=== PATIENT | male | born 1955 | race Caucasian/White ===

== ENCOUNTER 2017-09-13 10:31 | Emergency (ER) | payer MEDICARE, OTHER ==
[~2017-09-13] VITALS: Ht 193 cm; Wt 166.3 kg
[~2017-09-13 10:31] MED LIST: ASPI-621 PO; ASPI325T17 PO; FAMO-79 PO; GABA300C PO; NITR0.4T SL; PANT40TA3 PO; SIMV20TA PO; SIMV40TA PO
[2017-09-13 10:42] VITALS: BP 147/84
[2017-09-13] MEDS ORDERED: ONDANSETRON 2MG/ML, 2ML IVPush ONE (11:30)
[2017-09-13] MEDS ORDERED: SODIUM CHLORIDE FLUSH 10ML SYR IVF ONE (11:30)
[2017-09-13] MEDS ORDERED: MORPHINE SULFATE 4 MG/ML, 1ML IVPush PRN (11:30)
[2017-09-13] MEDS ORDERED: SODIUM CHLORIDE 0.9% 1,000ML IVBOLUS ONE (11:30)
[2017-09-13 11:59] LABS: BASOPHILS # (AUTO) 0.06 x10^3/uL (0-0.1); BASOPHILS % (AUTO) 1 % (0-1); EOSINOPHILS # (AUTO) 0.06 x10^3/uL (0-0.4); EOSINOPHILS % (AUTO) 1 % (1-7); LYMPHOCYTES # (AUTO) 2.01 x10^3/uL (1-3.4); LYMPHOCYTES % (AUTO) 21 % (22-44); MD NO; MEAN CORPUSCULAR HEMOGLOBIN 31.6 pg (27.5-34.5); MEAN CORPUSCULAR VOLUME 93.1 fL (81-97); MEAN PLATELET VOLUME 8.7 fL (7.4-10.4); MONOCYTES # (AUTO) 0.57 x10^3/uL (0.2-0.8); MONOCYTES % (AUTO) 6 % (2-9); NEUTROPHILS # (AUTO) 6.96 x10^3/uL (1.8-6.8); NEUTROPHILS % (AUTO) 72 % (42-75); PLATELET COUNT 311 x10^3/uL (130-400); RED BLOOD COUNT 5.62 x10^6/uL (4.38-5.82); RED CELL DISTRIBUTION WIDTH 14.8 % (9.4-14.8)
[2017-09-13 12:11] LABS: ALBUMIN 3.6 g/dL (3.4-5.0); ANION GAP 8 mmol/L (5-15); CALCIUM 8.6 mg/dL (8.5-10.1); CHLORIDE 105 mmol/L (98-107)
[2017-09-13 12:15] LABS: ALANINE AMINOTRANSFERASE 18 U/L (12-78); ALKALINE PHOSPHATASE 102 U/L (45-117); BILIRUBIN,TOTAL 0.6 mg/dL (0.2-1.0); CREATININE 0.81 mg/dL (0.7-1.3); TOTAL PROTEIN 7.2 g/dL (6.4-8.2)
== END 2017-09-13 14:47 | disposition left against medical advice (07) ==
LOC: ED 14:41
DX: R10.9 Unspecified abdominal pain (principal); R11.0 Nausea
CPT/HCPCS: 36415; 80053; 83690; 85025; 99284

== ENCOUNTER 2017-09-15 12:07 | Inpatient (IN) | payer MEDICARE, OTHER ==
[~2017-09-15] VITALS: Ht 193 cm; Wt 112.9 kg
[2017-09-15 13:23] LABS: MEAN CORPUSCULAR HEMOGLOBIN 31.1 pg (27.5-34.5); MEAN CORPUSCULAR HGB CONC 33.6 g/dL (33.2-36.2); MEAN CORPUSCULAR VOLUME 92.5 fL (81-97); MEAN PLATELET VOLUME 8.5 fL (7.4-10.4); PLATELET COUNT 321 x10^3/uL (130-400); RED BLOOD COUNT 5.66 x10^6/uL (4.38-5.82)
[2017-09-15 13:33] LABS: CHLORIDE 103 mmol/L (98-107)
[2017-09-15 13:34] LABS: ALBUMIN 3.7 g/dL (3.4-5.0); ANION GAP 9 mmol/L (5-15)
[2017-09-15 13:42] LABS: BASOPHILS # (AUTO) 0.04 x10^3/uL (0-0.1); BASOPHILS % (AUTO) 0 % (0-1); EOSINOPHILS # (AUTO) 0.03 x10^3/uL (0-0.4); EOSINOPHILS % (AUTO) 0 % (1-7); LYMPHOCYTES # (AUTO) 1.94 x10^3/uL (1-3.4); LYMPHOCYTES % (AUTO) 15 % (22-44); MD SCAN; MONOCYTES % (AUTO) 6 % (2-9); NEUTROPHILS # (AUTO) 10.04 x10^3/uL (1.8-6.8); NEUTROPHILS % (AUTO) 79 % (42-75)
[2017-09-15 13:53] LABS: ALANINE AMINOTRANSFERASE 15 U/L (12-78); ALKALINE PHOSPHATASE 105 U/L (45-117); BILIRUBIN,TOTAL 0.8 mg/dL (0.2-1.0); TOTAL PROTEIN 7.2 g/dL (6.4-8.2)
[2017-09-15] MEDS ORDERED: SODIUM CHLORIDE 0.9% 1,000 ML IV ONE (14:12)
[2017-09-15] MEDS ORDERED: ONDANSETRON 2MG/ML, 2ML ONE (14:14)
[2017-09-15] MEDS ORDERED: MORPHINE SULFATE 4 MG/ML, 1ML ONE ×2 (14:14→14:57)
[2017-09-15] MEDS: MORPHINE SULFATE 4 MG/ML, 1ML IVPush PRN ×4 (14:24→21:39)
[2017-09-15] MEDS ORDERED: ONDANSETRON 2MG/ML, 2ML IVPush ONE (14:30)
[2017-09-15] MEDS ORDERED: FAMOTIDINE 20 MG/2 ML IVPush ONE (14:30)
[2017-09-15] MEDS ORDERED: SODIUM CHLORIDE FLUSH 10ML SYR IVF ONE (14:30)
[2017-09-15] MEDS ORDERED: PANTOPRAZOLE 40 MG IV ONE (14:59)
[2017-09-15] MEDS ORDERED: PANTOPRAZOLE 40 MG IV IVPush ONE (15:00)
[2017-09-15] MEDS ORDERED: PANTOPRAZOLE 80 MG in SODIUM CHLORIDE 0.9% 50 ML IV ONE (15:00)
[2017-09-15] MEDS: PIPERACILLIN/TAZO/PMX 4.5GM 100 ML IV SCH ×2 (15:17→22:51)
[2017-09-15] MEDS ORDERED: morphine SULFATE 10 MG/ML, 1ML IVPush PRN (15:30)
[2017-09-15] MEDS ORDERED: ONDANSETRON 2MG/ML, 2ML IVPush PRN (15:30)
[2017-09-15] MEDS ORDERED: LABETALOL 5MG/ML, 20ML IVPush PRN (15:30)
[2017-09-15] MEDS ORDERED: ONDANSETRON ODT 4 MG PO PRN (15:30)
[2017-09-15] MEDS ORDERED: PROMETHAZINE 25 MG/ML, 1ML IM PRN (15:30)
[2017-09-15] MEDS ORDERED: hydrALAzine 20 MG/ML, 1ML IVPush PRN (15:30)
[2017-09-15] MEDS ORDERED: METOCLOPRAMIDE 5 MG/ML, 2ML IVPush PRN (15:30)
[2017-09-15] MEDS: PANTOPRAZOLE 40 MG IV IVPush SCH (16:00)
[2017-09-15 16:33] LABS: BASOPHILS # (AUTO) 0.03 x10^3/uL (0-0.1); BASOPHILS % (AUTO) 0 % (0-1); EOSINOPHILS # (AUTO) 0.02 x10^3/uL (0-0.4); EOSINOPHILS % (AUTO) 0 % (1-7); LYMPHOCYTES % (AUTO) 14 % (22-44); MD NO; MEAN CORPUSCULAR HEMOGLOBIN 31.2 pg (27.5-34.5); MEAN CORPUSCULAR HGB CONC 33.4 g/dL (33.2-36.2); MEAN CORPUSCULAR VOLUME 93.5 fL (81-97); MEAN PLATELET VOLUME 8.6 fL (7.4-10.4); MONOCYTES # (AUTO) 0.55 x10^3/uL (0.2-0.8); MONOCYTES % (AUTO) 5 % (2-9); NEUTROPHILS # (AUTO) 8.25 x10^3/uL (1.8-6.8); NEUTROPHILS % (AUTO) 81 % (42-75); PLATELET COUNT 282 x10^3/uL (130-400); RED BLOOD COUNT 5.33 x10^6/uL (4.38-5.82); RED CELL DISTRIBUTION WIDTH 15.3 % (9.4-14.8)
[2017-09-15] MEDS: PANTOPRAZOLE 80 MG in SODIUM CHLORIDE 0.9% 100 ML IV SCH (16:37)
[2017-09-15] MEDS: SODIUM CHLORIDE 0.9% 1,000 ML IV SCH (16:37)
[2017-09-15] MEDS: NICOTINE 14MG/24 HR PATCH.TD24 TD SCH (16:53)
[2017-09-15] MEDS ORDERED: morphine SULFATE 10 MG/ML, 1ML ONE (18:10)
[2017-09-15 18:36] LABS: MICROSCOPIC NOT IND
[2017-09-15 18:42] LABS: CULTURE INDICATED? NO
[2017-09-15 19:22] VITALS: BP 124/79
[2017-09-16] MEDS: PANTOPRAZOLE 80 MG in SODIUM CHLORIDE 0.9% 100 ML IV SCH (01:00)
[2017-09-16] MEDS: SODIUM CHLORIDE 0.9% 1,000 ML IV SCH ×2 (01:21→14:34)
[2017-09-16] MEDS: MORPHINE SULFATE 4 MG/ML, 1ML IVPush PRN ×7 (01:24→23:20)
[2017-09-16] MEDS: PANTOPRAZOLE 40 MG IV IVPush SCH ×2 (05:25→17:09)
[2017-09-16 05:49] LABS: ALBUMIN 2.8 g/dL (3.4-5.0); ANION GAP 6 mmol/L (5-15); CHLORIDE 108 mmol/L (98-107)
[2017-09-16 05:55] LABS: ALANINE AMINOTRANSFERASE 14 U/L (12-78); ALKALINE PHOSPHATASE 83 U/L (45-117); BILIRUBIN,TOTAL 0.8 mg/dL (0.2-1.0); CALCIUM 8.1 mg/dL (8.5-10.1); CHOL/HDL RATIO 4.8; CHOLESTEROL, TOTAL 153 mg/dL (140-239); CREATININE 0.79 mg/dL (0.7-1.3); HDL CHOL % 21 % (26-37); HDL CHOLESTEROL (DIRECT) 32 mg/dL (40-60); LDL CHOLESTEROL,CALCULATED 91 mg/dL (54-169); LDL/HDL RATIO 2.8 (0.5-3.0); TOTAL PROTEIN 5.8 g/dL (6.4-8.2); TRIGLYCERIDES 148 mg/dL (50-200); VLDL CHOLESTEROL 30 mg/dL (0-25)
[2017-09-16 06:01] LABS: BASOPHILS # (AUTO) 0.04 x10^3/uL (0-0.1); BASOPHILS % (AUTO) 0 % (0-1); EOSINOPHILS # (AUTO) 0.13 x10^3/uL (0-0.4); EOSINOPHILS % (AUTO) 2 % (1-7); LYMPHOCYTES # (AUTO) 1.99 x10^3/uL (1-3.4); LYMPHOCYTES % (AUTO) 24 % (22-44); MD NO; MEAN CORPUSCULAR HEMOGLOBIN 31.5 pg (27.5-34.5); MEAN CORPUSCULAR HGB CONC 33.7 g/dL (33.2-36.2); MEAN CORPUSCULAR VOLUME 93.4 fL (81-97); MEAN PLATELET VOLUME 8.7 fL (7.4-10.4); MONOCYTES % (AUTO) 9 % (2-9); NEUTROPHILS # (AUTO) 5.34 x10^3/uL (1.8-6.8); NEUTROPHILS % (AUTO) 65 % (42-75); PLATELET COUNT 271 x10^3/uL (130-400); RED BLOOD COUNT 4.95 x10^6/uL (4.38-5.82); RED CELL DISTRIBUTION WIDTH 14.7 % (9.4-14.8)
[2017-09-16 06:25] VITALS: BP 105/73
[2017-09-16] MEDS: PIPERACILLIN/TAZO/PMX 4.5GM 100 ML IV SCH ×3 (06:35→23:20)
[2017-09-16] MEDS ORDERED: LORazepam 2 MG/ML, 1ML IVPush PRN (09:00)
[2017-09-16 12:40] VITALS: BP 90/53
[2017-09-16] MEDS ORDERED: BENZOCAINE 20% SPRAY 0.5ML TP PRN (15:00)
[2017-09-16] MEDS: NICOTINE 14MG/24 HR PATCH.TD24 TD SCH (15:13)
[2017-09-16] MEDS: PHENOL THROAT SPRAY BOTTLE MM PRN ×2 (17:17→19:11)
[2017-09-16 20:56] VITALS: BP 97/53
[2017-09-17] MEDS: SODIUM CHLORIDE 0.9% 1,000 ML IV SCH (02:10)
[2017-09-17 03:38] VITALS: BP 104/73
[2017-09-17] MEDS: PANTOPRAZOLE 40 MG IV IVPush SCH ×2 (05:05→18:27)
[2017-09-17] MEDS: MORPHINE SULFATE 4 MG/ML, 1ML IVPush PRN ×5 (05:05→23:04)
[2017-09-17 05:14] LABS: BASOPHILS # (AUTO) 0.07 x10^3/uL (0-0.1); BASOPHILS % (AUTO) 1 % (0-1); EOSINOPHILS # (AUTO) 0.18 x10^3/uL (0-0.4); EOSINOPHILS % (AUTO) 2 % (1-7); LYMPHOCYTES # (AUTO) 1.99 x10^3/uL (1-3.4); LYMPHOCYTES % (AUTO) 26 % (22-44); MD NO; MEAN CORPUSCULAR HEMOGLOBIN 31.2 pg (27.5-34.5); MEAN CORPUSCULAR HGB CONC 33.4 g/dL (33.2-36.2); MEAN CORPUSCULAR VOLUME 93.5 fL (81-97); MEAN PLATELET VOLUME 8.3 fL (7.4-10.4); MONOCYTES # (AUTO) 0.59 x10^3/uL (0.2-0.8); MONOCYTES % (AUTO) 8 % (2-9); NEUTROPHILS # (AUTO) 4.75 x10^3/uL (1.8-6.8); NEUTROPHILS % (AUTO) 63 % (42-75); PLATELET COUNT 261 x10^3/uL (130-400); RED BLOOD COUNT 4.83 x10^6/uL (4.38-5.82); RED CELL DISTRIBUTION WIDTH 15.2 % (9.4-14.8)
[2017-09-17 05:27] LABS: CHLORIDE 108 mmol/L (98-107)
[2017-09-17 05:32] LABS: ALANINE AMINOTRANSFERASE 12 U/L (12-78); ALBUMIN 2.8 g/dL (3.4-5.0); ALKALINE PHOSPHATASE 75 U/L (45-117); ANION GAP 8 mmol/L (5-15); BILIRUBIN,TOTAL 0.9 mg/dL (0.2-1.0); CALCIUM 8.1 mg/dL (8.5-10.1); CREATININE 0.97 mg/dL (0.7-1.3); TOTAL PROTEIN 6.1 g/dL (6.4-8.2)
[2017-09-17] MEDS: PIPERACILLIN/TAZO/PMX 4.5GM 100 ML IV SCH ×3 (06:50→23:04)
[2017-09-17 08:18] VITALS: BP 108/73
[2017-09-17] MEDS: DEXTROSE 5% 1,000 ML IV SCH ×2 (10:30→23:06)
[2017-09-17 12:25] VITALS: BP 114/74
[2017-09-17] MEDS: NICOTINE 14MG/24 HR PATCH.TD24 TD SCH (15:10)
[2017-09-17 19:53] VITALS: BP 122/79
[2017-09-18 02:49] VITALS: BP 120/84
[2017-09-18] MEDS: MORPHINE SULFATE 4 MG/ML, 1ML IVPush PRN ×5 (03:22→21:16)
[2017-09-18 05:20] LABS: BASOPHILS # (AUTO) 0.03 x10^3/uL (0-0.1); BASOPHILS % (AUTO) 1 % (0-1); EOSINOPHILS # (AUTO) 0.14 x10^3/uL (0-0.4); EOSINOPHILS % (AUTO) 3 % (1-7); LYMPHOCYTES # (AUTO) 1.55 x10^3/uL (1-3.4); LYMPHOCYTES % (AUTO) 27 % (22-44); MD NO; MEAN CORPUSCULAR HEMOGLOBIN 31.2 pg (27.5-34.5); MEAN CORPUSCULAR HGB CONC 33.3 g/dL (33.2-36.2); MEAN CORPUSCULAR VOLUME 93.8 fL (81-97); MEAN PLATELET VOLUME 8.8 fL (7.4-10.4); MONOCYTES # (AUTO) 0.57 x10^3/uL (0.2-0.8); MONOCYTES % (AUTO) 10 % (2-9); NEUTROPHILS # (AUTO) 3.39 x10^3/uL (1.8-6.8); NEUTROPHILS % (AUTO) 60 % (42-75); PLATELET COUNT 274 x10^3/uL (130-400); RED BLOOD COUNT 4.84 x10^6/uL (4.38-5.82); RED CELL DISTRIBUTION WIDTH 14.5 % (9.4-14.8)
[2017-09-18 05:25] LABS: ALBUMIN 2.9 g/dL (3.4-5.0); ANION GAP 4 mmol/L (5-15); CALCIUM 8.2 mg/dL (8.5-10.1); CHLORIDE 106 mmol/L (98-107)
[2017-09-18 05:29] LABS: ALANINE AMINOTRANSFERASE 13 U/L (12-78); ALKALINE PHOSPHATASE 77 U/L (45-117); CREATININE 0.93 mg/dL (0.7-1.3)
[2017-09-18] MEDS: PIPERACILLIN/TAZO/PMX 4.5GM 100 ML IV SCH ×3 (06:31→23:12)
[2017-09-18] MEDS: PANTOPRAZOLE 40 MG IV IVPush SCH ×2 (06:31→17:59)
[2017-09-18 07:23] VITALS: BP 118/78
[2017-09-18 12:37] VITALS: BP 126/74
[2017-09-18] MEDS: NICOTINE 14MG/24 HR PATCH.TD24 TD SCH (14:57)
[2017-09-18] MEDS: DEXTROSE 5% 1,000 ML IV SCH (14:58)
[2017-09-18] MEDS: ENOXAPARIN 40 MG/0.4 ML SQ SCH (15:30)
[2017-09-18 20:37] VITALS: BP 110/70
[2017-09-18] MEDS ORDERED: LORazepam 2 MG/ML, 1ML IVPush PRN (21:00)
[2017-09-19 01:02] VITALS: BP 114/79
[2017-09-19] MEDS: MORPHINE SULFATE 4 MG/ML, 1ML IVPush PRN ×6 (01:05→22:30)
[2017-09-19] MEDS: DEXTROSE 5% 1,000 ML IV SCH ×2 (04:56→22:31)
[2017-09-19 05:52] LABS: BASOPHILS # (AUTO) 0.05 x10^3/uL (0-0.1); BASOPHILS % (AUTO) 1 % (0-1); EOSINOPHILS # (AUTO) 0.12 x10^3/uL (0-0.4); EOSINOPHILS % (AUTO) 2 % (1-7); LYMPHOCYTES # (AUTO) 1.55 x10^3/uL (1-3.4); LYMPHOCYTES % (AUTO) 27 % (22-44); MD NO; MEAN CORPUSCULAR HEMOGLOBIN 31.6 pg (27.5-34.5); MEAN CORPUSCULAR HGB CONC 33.8 g/dL (33.2-36.2); MEAN CORPUSCULAR VOLUME 93.7 fL (81-97); MEAN PLATELET VOLUME 8.8 fL (7.4-10.4); MONOCYTES # (AUTO) 0.54 x10^3/uL (0.2-0.8); MONOCYTES % (AUTO) 10 % (2-9); NEUTROPHILS # (AUTO) 3.43 x10^3/uL (1.8-6.8); NEUTROPHILS % (AUTO) 60 % (42-75); PLATELET COUNT 269 x10^3/uL (130-400); RED BLOOD COUNT 4.89 x10^6/uL (4.38-5.82); RED CELL DISTRIBUTION WIDTH 14.9 % (9.4-14.8)
[2017-09-19 05:58] LABS: CHLORIDE 106 mmol/L (98-107)
[2017-09-19] MEDS: PIPERACILLIN/TAZO/PMX 4.5GM 100 ML IV SCH ×3 (06:07→22:30)
[2017-09-19 06:09] LABS: ALANINE AMINOTRANSFERASE 21 U/L (12-78); ALBUMIN 3.1 g/dL (3.4-5.0); ALKALINE PHOSPHATASE 77 U/L (45-117); ANION GAP 7 mmol/L (5-15); BILIRUBIN,TOTAL 0.8 mg/dL (0.2-1.0); CALCIUM 8.5 mg/dL (8.5-10.1); CREATININE 0.85 mg/dL (0.7-1.3); TOTAL PROTEIN 6.2 g/dL (6.4-8.2)
[2017-09-19] MEDS: PANTOPRAZOLE 40 MG IV IVPush SCH ×2 (06:13→18:22)
[2017-09-19 07:35] VITALS: BP 132/78
[2017-09-19 13:10] VITALS: BP 108/78
[2017-09-19] MEDS: ENOXAPARIN 40 MG/0.4 ML SQ SCH (14:25)
[2017-09-19] MEDS: NICOTINE 14MG/24 HR PATCH.TD24 TD SCH (15:21)
[2017-09-19 19:59] VITALS: BP 109/74
[2017-09-20 03:14] VITALS: BP 151/84
[2017-09-20 05:48] LABS: BASOPHILS # (AUTO) 0.03 x10^3/uL (0-0.1); BASOPHILS % (AUTO) 1 % (0-1); EOSINOPHILS # (AUTO) 0.12 x10^3/uL (0-0.4); EOSINOPHILS % (AUTO) 2 % (1-7); LYMPHOCYTES # (AUTO) 1.42 x10^3/uL (1-3.4); LYMPHOCYTES % (AUTO) 28 % (22-44); MD NO; MEAN CORPUSCULAR HEMOGLOBIN 31.6 pg (27.5-34.5); MEAN CORPUSCULAR HGB CONC 33.6 g/dL (33.2-36.2); MEAN CORPUSCULAR VOLUME 94.1 fL (81-97); MEAN PLATELET VOLUME 8.9 fL (7.4-10.4); MONOCYTES # (AUTO) 0.46 x10^3/uL (0.2-0.8); MONOCYTES % (AUTO) 9 % (2-9); NEUTROPHILS # (AUTO) 3.11 x10^3/uL (1.8-6.8); NEUTROPHILS % (AUTO) 61 % (42-75); PLATELET COUNT 267 x10^3/uL (130-400); RED BLOOD COUNT 5.04 x10^6/uL (4.38-5.82); RED CELL DISTRIBUTION WIDTH 14.4 % (9.4-14.8)
[2017-09-20 05:50] LABS: ALBUMIN 3.2 g/dL (3.4-5.0); ANION GAP 5 mmol/L (5-15); CALCIUM 8.4 mg/dL (8.5-10.1); CHLORIDE 107 mmol/L (98-107)
[2017-09-20 05:53] LABS: ALANINE AMINOTRANSFERASE 17 U/L (12-78); ALKALINE PHOSPHATASE 78 U/L (45-117); BILIRUBIN,TOTAL 0.8 mg/dL (0.2-1.0); CREATININE 0.93 mg/dL (0.7-1.3); TOTAL PROTEIN 6.2 g/dL (6.4-8.2)
[2017-09-20] MEDS: PIPERACILLIN/TAZO/PMX 4.5GM 100 ML IV SCH (06:48)
[2017-09-20] MEDS: PANTOPRAZOLE 40 MG IV IVPush SCH (06:49)
[2017-09-20 07:00] VITALS: BP 125/77
== END 2017-09-20 08:00 | disposition left against medical advice (07) | DRG 381 ==
LOC: ED 13:00 → EDIP 14:37 → 4NOR 15:55
PROVIDERS: ADMIT Internal Medicine Pulmonary Disease; ATTEND Internal Medicine Pulmonary Disease
DX: K26.5 Chronic or unspecified duodenal ulcer with perforation (principal); K86.1 Other chronic pancreatitis; D72.829 Elevated white blood cell count, unspecified; E66.9 Obesity, unspecified; E78.5 Hyperlipidemia, unspecified; F17.210 Nicotine dependence, cigarettes, uncomplicated; Z72.89 Other problems related to lifestyle; F41.9 Anxiety disorder, unspecified; I10 Essential (primary) hypertension; Z87.11 Personal history of peptic ulcer disease; Z53.21 Procedure and treatment not carried out due to patient leaving prior to being seen by health care provider; Z68.30 Body mass index [BMI] 30.0-30.9, adult; R07.0 Pain in throat
CPT/HCPCS: 36415; 74018; 74176; 74245; 80053; 80061; 81003; 83735; 84100; 85025; 87040; 96361; 96374; 96375; 96376; J2405; J2543; J7070; C9113; J2060; J7030

== ENCOUNTER 2018-07-28 10:20 | Emergency (ER) | payer OTHER ==
[~2018-07-28] VITALS: Ht 193 cm; Wt 109.0 kg
[~2018-07-28 10:20] MED LIST changes: -ASPI-621 PO; +ASPI81TA45 PO
--- NOTE | 2018-07-28 10:54 | NUR ---
PATIENT REPORT GIVEN TO BORIS. PATIENT UNDRESSED, GIVEN WARM BLANKET, SOCKS. PATIENT'S CLOTHES WERE WET BECUASE HE WALKED TO THE ER. PATIENT COOPERATIVE AND APPROPRIATE.
[2018-07-28 11:27] LABS: BASOPHILS # (AUTO) 0.03 x10^3/uL (0-0.1); BASOPHILS % (AUTO) 0 % (0-1); EOSINOPHILS # (AUTO) 0.03 x10^3/uL (0-0.4); EOSINOPHILS % (AUTO) 0 % (1-7); LYMPHOCYTES # (AUTO) 1.39 x10^3/uL (1-3.4); LYMPHOCYTES % (AUTO) 14 % (22-44); MD NO; MEAN CORPUSCULAR HGB CONC 33.9 g/dL (33.2-36.2); MEAN CORPUSCULAR VOLUME 94.2 fL (81-97); MEAN PLATELET VOLUME 8.9 fL (7.4-10.4); MONOCYTES # (AUTO) 0.59 x10^3/uL (0.2-0.8); MONOCYTES % (AUTO) 6 % (2-9); NEUTROPHILS # (AUTO) 8.22 x10^3/uL (1.8-6.8); NEUTROPHILS % (AUTO) 80 % (42-75); PLATELET COUNT 238 x10^3/uL (130-400); RED BLOOD COUNT 5.18 x10^6/uL (4.38-5.82); RED CELL DISTRIBUTION WIDTH 13.8 % (9.4-14.8)
[2018-07-28 11:37] LABS: INTERNATIONAL NORMALIZED RATIO 1.01 (0.93-1.1); PROTHROMBIN TIME 10.7 Seconds (9.6-11.5)
--- NOTE | 2018-07-28 11:38 | NUR ---
PATIEN TTO RADIOLOGY
[2018-07-28 11:42] LABS: CHLORIDE 103 mmol/L (98-107)
[2018-07-28 12:06] LABS: ALANINE AMINOTRANSFERASE 21 U/L (12-78); ALBUMIN 3.9 g/dL (3.4-5.0); ALKALINE PHOSPHATASE 99 U/L (45-117); ANION GAP 7 mmol/L (5-15); BILIRUBIN,TOTAL 0.8 mg/dL (0.2-1.0); CALCIUM 8.6 mg/dL (8.5-10.1); CREATININE 0.92 mg/dL (0.7-1.3)
[2018-07-28 12:13] LABS: TROPONIN I < 0.015 ng/mL (0.000-0.045)
[2018-07-28] MEDS ORDERED: ASPIRIN 81 MG TABLET CHEW PO ONE (12:30)
--- NOTE | 2018-07-28 12:32 | NUR ---
PT WITH CHEST PAIN. MD AWARE. VITALS STABLE.
[2018-07-28] MEDS ORDERED: ASPIRIN 81 MG TABLET CHEW ONE (12:35)
[2018-07-28] MEDS ORDERED: NITROGLYCERIN SINGLE TAB 0.4 MG SL ONE (12:59)
--- NOTE | 2018-07-28 12:59 | NUR ---
PT STATES CHEST PAIN OF 8/10. NITRO GIVEN.
[2018-07-28] MEDS ORDERED: NITROGLYCERIN SINGLE TAB 0.4 MG SL PRN (13:00)
--- NOTE | 2018-07-28 13:48 | NUR ---
PT AWAITING TRANSPORT TO [facility] WHEN BED AVAILABLE
--- NOTE | 2018-07-28 14:47 | NUR ---
PT GIVEN CRACKERS AND MILK. DIET TRAY ORDERED
--- NOTE | 2018-07-28 15:53 | NUR ---
PT RESTING IN BED.
--- NOTE | 2018-07-28 16:39 | NUR ---
REPORT CALLED TO ALEENA CAVAZOS. PT GIVEN MEAL TRAY.
[2018-07-28 16:40] VITALS: BP 123/75
--- NOTE | 2018-07-28 17:52 | NUR ---
PT LEFT VIA [facility] TO [place]
== END 2018-07-28 17:56 | disposition short-term general hospital (02) ==
LOC: ED 11:25 → UNDOADMIN 12:25 → EDIP 12:25
DX: R07.89 Other chest pain (principal); F17.200 Nicotine dependence, unspecified, uncomplicated
CPT/HCPCS: 36415; 70450; 71045; 80053; 80307; 84484; 85025; 85610; 85730; 93005; 99285

== ENCOUNTER 2018-12-02 02:35 | Emergency (ER) | payer OTHER, MEDICARE ==
[~2018-12-02] VITALS: Ht 193 cm; Wt 114.4 kg
[2018-12-02] MEDS ORDERED: ATOR20TA PO (02:50)
[2018-12-02] MEDS ORDERED: ASPI-515 PO (02:50)
[2018-12-02] MEDS ORDERED: CLOP75TA52 PO (02:50)
--- NOTE | 2018-12-02 03:08 | NUR ---
BIB [facility] AFTER FALL [facility] [employer]. PT HAVING NUMBNESS AND WEAKNESS TO LEFT ARM AND LEG. PT DIAGNOSED WITH TIA 3-4 WEEKS AGO, LEFT SIDE IS WEAKER THAN RIGHT SIDE. DENIES LOC. LACERATION ABOVE LEFT EYEBROW. ABRASION TO RIGHT FOREARM. HAVING PAIN TO RIGHT LOWER BACK AND RIGHT WRIST. PT IS BLIND IN RIGHT EYE.
[2018-12-02 03:12] LABS: BASOPHILS # (AUTO) 0.03 x10^3/uL (0-0.1); BASOPHILS % (AUTO) 0 % (0-1); EOSINOPHILS % (AUTO) 0 % (1-7); LYMPHOCYTES # (AUTO) 0.97 x10^3/uL (1-3.4); LYMPHOCYTES % (AUTO) 7 % (22-44); MD NO; MEAN CORPUSCULAR HEMOGLOBIN 32.1 pg (27.5-34.5); MEAN CORPUSCULAR HGB CONC 33.9 g/dL (33.2-36.2); MEAN CORPUSCULAR VOLUME 94.8 fL (81-97); MEAN PLATELET VOLUME 8.1 fL (7.4-10.4); MONOCYTES % (AUTO) 4 % (2-9); NEUTROPHILS # (AUTO) 12.58 x10^3/uL (1.8-6.8); NEUTROPHILS % (AUTO) 89 % (42-75); PLATELET COUNT 212 x10^3/uL (130-400); RED CELL DISTRIBUTION WIDTH 14.1 % (9.4-14.8)
[2018-12-02 03:23] LABS: INTERNATIONAL NORMALIZED RATIO 0.95 (0.93-1.1)
[2018-12-02 03:25] LABS: ALANINE AMINOTRANSFERASE 40 U/L (12-78); ALBUMIN 3.7 g/dL (3.4-5.0); ANION GAP 11 mmol/L (5-15); CALCIUM 8.4 mg/dL (8.5-10.1); CHLORIDE 110 mmol/L (98-107); CREATININE 0.77 mg/dL (0.7-1.3)
[2018-12-02 03:27] LABS: ALKALINE PHOSPHATASE 116 U/L (45-117); BILIRUBIN,TOTAL 0.9 mg/dL (0.2-1.0); TOTAL PROTEIN 6.9 g/dL (6.4-8.2)
[2018-12-02] MEDS ORDERED: OMNIPAQUE 350 MG/ML, 100ML BOTTLE ONE (04:00)
--- NOTE | 2018-12-02 04:37 | NUR ---
PT SLEEPING ON GARCIA. VSS. UPDATED ON POC.
[2018-12-02] MEDS ORDERED: LIDOCAINE-MPF 1%, 5ML INFIL ONE (05:30)
[2018-12-02] MEDS ORDERED: LIDOCAINE-MPF 1%, 5ML ONE (05:34)
--- NOTE | 2018-12-02 06:02 | NUR ---
REPORT GIVEN TO MAILING SECTION CLERK AT [facility].
[2018-12-02] MEDS ORDERED: ACETAMINOPHEN 500 MG TABLET ONE (06:15)
[2018-12-02] MEDS ORDERED: BACITRACIN ZINC OINT 500U/GM, 0.9 GM ONE (06:21)
[2018-12-02] MEDS ORDERED: ACETAMINOPHEN 500 MG TABLET PO ONE (06:30)
--- NOTE | 2018-12-02 06:36 | NUR ---
PT TRANSPORTED TO [facility] BY [facility].
[2018-12-02 06:37] VITALS: BP 134/88
== END 2018-12-02 06:39 | disposition short-term general hospital (02) ==
LOC: ED 06:17
DX: S01.112A Laceration without foreign body of left eyelid and periocular area, initial encounter (principal); R91.1 Solitary pulmonary nodule; Z86.73 Personal history of transient ischemic attack (TIA), and cerebral infarction without residual deficits; W01.0XXA Fall on same level from slipping, tripping and stumbling without subsequent striking against object, initial encounter; Y93.01 Activity, walking, marching and hiking; Y92.009 Unspecified place in unspecified non-institutional (private) residence as the place of occurrence of the external cause; Y99.8 Other external cause status
CPT/HCPCS: 12052; 36415; 70450; 71260; 72125; 74177; 80053; 80307; 85025; 85610; 85730; 93005; 99285; Q9967

== ENCOUNTER 2018-12-27 20:40 | Inpatient (IN) | payer MEDICARE, OTHER ==
[~2018-12-27] VITALS: Ht 193 cm; Wt 114.0 kg
[~2018-12-27 20:40] MED LIST changes: +ASPI-515 PO; +ATOR20TA PO; +CLOP75TA52 PO; -NITR0.4T SL; +NITR0.4T41 SL
[2018-12-27] MEDS ORDERED: OMNIPAQUE 350 MG/ML, 100ML BOTTLE ONE (21:10)
[2018-12-27] MEDS ORDERED: ONDANSETRON 2MG/ML, 2ML ONE (21:19)
[2018-12-27] MEDS ORDERED: MORPHINE SULFATE 4 MG/ML, 1ML ONE (21:19)
[2018-12-27] MEDS ORDERED: ONDANSETRON 2MG/ML, 2ML IVPush ONE (21:30)
[2018-12-27] MEDS ORDERED: SODIUM CHLORIDE FLUSH 10ML SYR IVF ONE (21:30)
[2018-12-27] MEDS ORDERED: MORPHINE SULFATE 4 MG/ML, 1ML IVPush PRN (21:30)
[2018-12-27 21:32] LABS: BASOPHILS # (AUTO) 0.07 x10^3/uL (0-0.1); BASOPHILS % (AUTO) 1 % (0-1); EOSINOPHILS # (AUTO) 0.12 x10^3/uL (0-0.4); EOSINOPHILS % (AUTO) 1 % (1-7); LYMPHOCYTES # (AUTO) 2.59 x10^3/uL (1-3.4); LYMPHOCYTES % (AUTO) 28 % (22-44); MD NO; MEAN CORPUSCULAR HEMOGLOBIN 31.3 pg (27.5-34.5); MEAN CORPUSCULAR HGB CONC 32.4 g/dL (33.2-36.2); MEAN CORPUSCULAR VOLUME 96.5 fL (81-97); MEAN PLATELET VOLUME 8.1 fL (7.4-10.4); MONOCYTES # (AUTO) 0.72 x10^3/uL (0.2-0.8); MONOCYTES % (AUTO) 8 % (2-9); NEUTROPHILS # (AUTO) 5.64 x10^3/uL (1.8-6.8); NEUTROPHILS % (AUTO) 62 % (42-75); PLATELET COUNT 274 x10^3/uL (130-400); RED BLOOD COUNT 5.24 x10^6/uL (4.38-5.82); RED CELL DISTRIBUTION WIDTH 13.9 % (9.4-14.8)
[2018-12-27 21:38] LABS: ALANINE AMINOTRANSFERASE 18 U/L (12-78); ALBUMIN 3.8 g/dL (3.4-5.0); ANION GAP 8 mmol/L (5-15); CALCIUM 8.5 mg/dL (8.5-10.1); CHLORIDE 107 mmol/L (98-107); CREATININE 0.75 mg/dL (0.7-1.3)
[2018-12-27 21:41] LABS: ALKALINE PHOSPHATASE 139 U/L (45-117); TOTAL PROTEIN 6.8 g/dL (6.4-8.2)
--- NOTE | 2018-12-27 22:49 | NUR ---
attempted to insert ng tube with patient. upon entering the nares the patient began to panic and shouted stop. ng tube removed. pt stated "why don't they just cut me open and get it. i don't want this." provider made aware.
--- NOTE | 2018-12-27 23:18 | NUR ---
pt refusing ng at this time. notified and ng tube will be witheld.
[2018-12-28 00:10] VITALS: BP 132/84
[2018-12-28 03:33] VITALS: BP 103/59
[2018-12-28] MEDS ORDERED: ENOXAPARIN 40 MG/0.4 ML SQ SCH (04:00)
[2018-12-28] MEDS ORDERED: ENALAPRILAT 1.25 MG/ML, 2ML IVPush PRN (04:00)
[2018-12-28] MEDS ORDERED: LABETALOL 5MG/ML, 20ML IVPush PRN (04:00)
[2018-12-28] MEDS ORDERED: ONDANSETRON 2MG/ML, 2ML IVPush PRN (04:00)
[2018-12-28] MEDS ORDERED: MORPHINE SULFATE 4 MG/ML, 1ML IVPush ONE (04:00)
[2018-12-28] MEDS ORDERED: ACETAMINOPHEN 325 MG TABLET PO PRN (04:00)
[2018-12-28 04:04] LABS: MICROSCOPIC NOT IND
[2018-12-28 04:08] LABS: CULTURE INDICATED? NO
[2018-12-28] MEDS: POTASSIUM CHLORIDE 20 MEQ, MAGNESIUM SULFATE 2 GM, THIAMINE 200 MG, MVI ADULT 10 ML, FO... IV SCH ×2 (04:08→13:45)
[2018-12-28 04:46] LABS: BASOPHILS # (AUTO) 0.08 x10^3/uL (0-0.1); BASOPHILS % (AUTO) 1 % (0-1); EOSINOPHILS % (AUTO) 3 % (1-7); LYMPHOCYTES # (AUTO) 1.81 x10^3/uL (1-3.4); LYMPHOCYTES % (AUTO) 25 % (22-44); MD NO; MEAN CORPUSCULAR HEMOGLOBIN 31.5 pg (27.5-34.5); MEAN CORPUSCULAR HGB CONC 32.7 g/dL (33.2-36.2); MEAN CORPUSCULAR VOLUME 96.6 fL (81-97); MEAN PLATELET VOLUME 7.9 fL (7.4-10.4); MONOCYTES # (AUTO) 0.64 x10^3/uL (0.2-0.8); MONOCYTES % (AUTO) 9 % (2-9); NEUTROPHILS # (AUTO) 4.47 x10^3/uL (1.8-6.8); NEUTROPHILS % (AUTO) 62 % (42-75); PLATELET COUNT 237 x10^3/uL (130-400); RED BLOOD COUNT 4.86 x10^6/uL (4.38-5.82); RED CELL DISTRIBUTION WIDTH 14.6 % (9.4-14.8)
[2018-12-28 04:59] LABS: ANION GAP 7 mmol/L (5-15); CALCIUM 8.4 mg/dL (8.5-10.1); CHLORIDE 110 mmol/L (98-107)
[2018-12-28] MEDS: LACTATED RINGERS 1,000 ML IV SCH ×2 (07:30→15:56)
[2018-12-28 08:53] VITALS: BP 101/64
[2018-12-28] MEDS: PANTOPRAZOLE 40 MG IV IVPush SCH (10:06)
[2018-12-28] MEDS: HEPARIN 5,000 UNITS/ML, 1ML SQ SCH ×2 (10:09→17:39)
[2018-12-28] MEDS: morphine SULFATE 10 MG/ML, 1ML IVPush PRN ×3 (10:15→19:17)
[2018-12-28 15:20] VITALS: BP 122/81
[2018-12-28] MEDS ORDERED: BENZOCAINE 20% SPRAY 0.5ML TP ONE (16:30)
[2018-12-28 16:41] VITALS: BP 118/77
[2018-12-28 20:15] VITALS: BP 112/72
[2018-12-29] MEDS: HEPARIN 5,000 UNITS/ML, 1ML SQ SCH ×3 (02:07→18:23)
[2018-12-29] MEDS: morphine SULFATE 10 MG/ML, 1ML IVPush PRN ×5 (02:07→21:59)
[2018-12-29] MEDS: LACTATED RINGERS 1,000 ML IV SCH (02:08)
[2018-12-29 03:32] VITALS: BP 118/79
[2018-12-29 03:48] LABS: BASOPHILS # (AUTO) 0.03 x10^3/uL (0-0.1); BASOPHILS % (AUTO) 1 % (0-1); EOSINOPHILS # (AUTO) 0.12 x10^3/uL (0-0.4); EOSINOPHILS % (AUTO) 2 % (1-7); LYMPHOCYTES # (AUTO) 1.42 x10^3/uL (1-3.4); LYMPHOCYTES % (AUTO) 27 % (22-44); MD NO; MEAN CORPUSCULAR HEMOGLOBIN 31.9 pg (27.5-34.5); MEAN CORPUSCULAR HGB CONC 32.7 g/dL (33.2-36.2); MEAN CORPUSCULAR VOLUME 97.5 fL (81-97); MEAN PLATELET VOLUME 8.3 fL (7.4-10.4); MONOCYTES # (AUTO) 0.52 x10^3/uL (0.2-0.8); MONOCYTES % (AUTO) 10 % (2-9); NEUTROPHILS # (AUTO) 3.21 x10^3/uL (1.8-6.8); NEUTROPHILS % (AUTO) 61 % (42-75); PLATELET COUNT 200 x10^3/uL (130-400); RED CELL DISTRIBUTION WIDTH 14.4 % (9.4-14.8)
[2018-12-29 03:55] LABS: ANION GAP 4 mmol/L (5-15); CALCIUM 8.2 mg/dL (8.5-10.1); CHLORIDE 112 mmol/L (98-107)
[2018-12-29] MEDS: POTASSIUM CHLORIDE 20 MEQ, MAGNESIUM SULFATE 2 GM, THIAMINE 200 MG, MVI ADULT 10 ML, FO... IV SCH (04:36)
[2018-12-29 08:00] VITALS: BP 108/69
[2018-12-29] MEDS: PANTOPRAZOLE 40 MG IV IVPush SCH (09:33)
[2018-12-29 13:01] VITALS: BP 112/66
[2018-12-29] MEDS: POTASSIUM CHLORIDE 10 MEQ in D5%-0.45% NACL 1,000 ML IV SCH (14:35)
[2018-12-29 19:12] VITALS: BP 108/72
[2018-12-30] MEDS: POTASSIUM CHLORIDE 10 MEQ in D5%-0.45% NACL 1,000 ML IV SCH ×3 (00:42→20:22)
[2018-12-30] MEDS: morphine SULFATE 10 MG/ML, 1ML IVPush PRN ×4 (01:01→20:23)
[2018-12-30] MEDS: HEPARIN 5,000 UNITS/ML, 1ML SQ SCH ×3 (01:02→16:54)
[2018-12-30 01:14] VITALS: BP 133/78
[2018-12-30 05:57] LABS: CHLORIDE 111 mmol/L (98-107)
[2018-12-30 06:08] LABS: ALANINE AMINOTRANSFERASE 16 U/L (12-78); ALBUMIN 3.2 g/dL (3.4-5.0); ALKALINE PHOSPHATASE 127 U/L (45-117); ANION GAP 5 mmol/L (5-15); BILIRUBIN,TOTAL 2.7 mg/dL (0.2-1.0); CALCIUM 8.3 mg/dL (8.5-10.1); CREATININE 0.71 mg/dL (0.7-1.3); TOTAL PROTEIN 5.9 g/dL (6.4-8.2)
[2018-12-30 07:24] VITALS: BP 108/70
[2018-12-30] MEDS: PANTOPRAZOLE 40 MG IV IVPush SCH (11:09)
[2018-12-30 15:33] VITALS: BP 116/76
[2018-12-30 20:36] VITALS: BP 128/78
[2018-12-31] MEDS: HEPARIN 5,000 UNITS/ML, 1ML SQ SCH ×3 (00:08→16:21)
[2018-12-31] MEDS: morphine SULFATE 10 MG/ML, 1ML IVPush PRN ×4 (00:18→19:39)
[2018-12-31 00:40] VITALS: BP 116/73
[2018-12-31] MEDS: POTASSIUM CHLORIDE 10 MEQ in D5%-0.45% NACL 1,000 ML IV SCH ×3 (06:05→17:35)
[2018-12-31] MEDS ORDERED: HYDROmorphone 1 MG/ML, 1ML INJ IM PRN (07:00)
[2018-12-31 07:12] VITALS: BP 125/76
[2018-12-31] MEDS: PANTOPRAZOLE 40 MG IV IVPush SCH (08:18)
[2018-12-31 13:35] VITALS: BP 97/65
[2018-12-31] MEDS ORDERED: HYDROmorphone 2 MG/ML, 1ML ONE (16:13)
[2018-12-31] MEDS ORDERED: HYDROmorphone 1 MG/ML, 1ML INJ IV PRN (16:30)
[2018-12-31 19:59] VITALS: BP 113/68
[2019-01-01 00:24] VITALS: BP 144/76
[2019-01-01] MEDS: HEPARIN 5,000 UNITS/ML, 1ML SQ SCH ×4 (00:47→22:41)
[2019-01-01] MEDS: morphine SULFATE 10 MG/ML, 1ML IVPush PRN ×6 (00:47→22:40)
[2019-01-01] MEDS: POTASSIUM CHLORIDE 10 MEQ in D5%-0.45% NACL 1,000 ML IV SCH ×2 (05:49→15:39)
[2019-01-01 06:21] LABS: ALANINE AMINOTRANSFERASE 20 U/L (12-78); ALBUMIN 3.2 g/dL (3.4-5.0); ANION GAP 6 mmol/L (5-15); CALCIUM 8.8 mg/dL (8.5-10.1); CHLORIDE 105 mmol/L (98-107); CREATININE 0.84 mg/dL (0.7-1.3)
[2019-01-01 06:23] LABS: ALKALINE PHOSPHATASE 119 U/L (45-117); BILIRUBIN,TOTAL 1.4 mg/dL (0.2-1.0); TOTAL PROTEIN 6.2 g/dL (6.4-8.2)
[2019-01-01 06:25] VITALS: BP 108/68
[2019-01-01] MEDS: PANTOPRAZOLE 40 MG IV IVPush SCH (08:44)
[2019-01-01 14:00] VITALS: BP 120/73
[2019-01-01 19:46] VITALS: BP 109/67
[2019-01-02] MEDS: POTASSIUM CHLORIDE 10 MEQ in D5%-0.45% NACL 1,000 ML IV SCH ×3 (00:09→20:13)
[2019-01-02 00:49] VITALS: BP 107/66
[2019-01-02] MEDS: morphine SULFATE 10 MG/ML, 1ML IVPush PRN ×6 (05:17→23:29)
[2019-01-02 08:00] VITALS: BP 98/61
[2019-01-02] MEDS: PANTOPRAZOLE 40 MG IV IVPush SCH (09:05)
[2019-01-02] MEDS: HEPARIN 5,000 UNITS/ML, 1ML SQ SCH ×3 (09:05→23:29)
[2019-01-02 14:49] VITALS: BP 97/51
[2019-01-02 19:44] VITALS: BP 106/68
[2019-01-03 00:50] VITALS: BP 96/63
[2019-01-03] MEDS: POTASSIUM CHLORIDE 10 MEQ in D5%-0.45% NACL 1,000 ML IV SCH ×2 (05:50→17:01)
[2019-01-03] MEDS: morphine SULFATE 10 MG/ML, 1ML IVPush PRN ×4 (05:54→18:37)
[2019-01-03 06:05] LABS: ALBUMIN 3.1 g/dL (3.4-5.0); ANION GAP 4 mmol/L (5-15); CALCIUM 8.8 mg/dL (8.5-10.1); CHLORIDE 110 mmol/L (98-107)
[2019-01-03 06:09] LABS: ALANINE AMINOTRANSFERASE 19 U/L (12-78); ALKALINE PHOSPHATASE 109 U/L (45-117); BILIRUBIN,TOTAL 1.5 mg/dL (0.2-1.0); CREATININE 0.75 mg/dL (0.7-1.3); TOTAL PROTEIN 6.1 g/dL (6.4-8.2)
[2019-01-03 06:56] VITALS: BP 107/69
[2019-01-03] MEDS: HEPARIN 5,000 UNITS/ML, 1ML SQ SCH ×4 (09:13→23:10)
[2019-01-03] MEDS: PANTOPRAZOLE 40 MG IV IVPush SCH (09:13)
[2019-01-03] MEDS ORDERED: POLYETHYLENE GLYCOL 17 GM PACKET PO ONE (10:30)
[2019-01-03] MEDS ORDERED: BISACODYL 10 MG SUPP PR PRN (10:30)
[2019-01-03] MEDS: DOCUSATE 100 MG CAPSULE PO SCH (10:49)
[2019-01-03] MEDS: METOCLOPRAMIDE 5 MG/ML, 2ML IVPush SCH ×3 (10:49→23:10)
[2019-01-03 13:49] VITALS: BP 96/61
[2019-01-03 20:00] VITALS: BP 116/71
[2019-01-03] MEDS: OXYcodone/APAP 5/325MG TABLET PO PRN (20:57)
[2019-01-03] MEDS ORDERED: MESALAMINE ENEMA 4 GM/60 ML ENEMA PR SCH (21:00)
[2019-01-03 23:18] VITALS: BP 123/84
[2019-01-04 02:00] VITALS: BP 113/72
[2019-01-04] MEDS: METOCLOPRAMIDE 5 MG/ML, 2ML IVPush SCH ×2 (04:23→11:00)
[2019-01-04] MEDS: POTASSIUM CHLORIDE 10 MEQ in D5%-0.45% NACL 1,000 ML IV SCH (04:23)
[2019-01-04] MEDS: PANTOPRAZOLE 40 MG IV IVPush SCH (08:02)
[2019-01-04] MEDS: DOCUSATE 100 MG CAPSULE PO SCH (08:02)
[2019-01-04] MEDS: OXYcodone/APAP 5/325MG TABLET PO PRN (08:02)
[2019-01-04] MEDS: HEPARIN 5,000 UNITS/ML, 1ML SQ SCH (08:03)
[2019-01-04 08:53] VITALS: BP 109/69
[2019-01-04] MEDS ORDERED: DOCU-131 PO (10:26)
[2019-01-04] MEDS ORDERED: ATORVASTATIN 20 MG TABLET PO SCH (21:00)
[2019-01-05] MEDS ORDERED: PANTOPROZOLE 40MG TABLET PO SCH (06:00)
== END 2019-01-04 13:43 | disposition home or self-care (01) | DRG 388 ==
LOC: ED 21:30 → EDIP 23:25 → 3NE 12-28 00:14
PROVIDERS: ADMIT Family Medicine; ATTEND Family Medicine
PROC: 0D9670Z Drainage of Stomach with Drainage Device, Via Natural or Artificial Opening (ICD-10-PCS; principal; 2018-12-27)
DX: K56.51 Intestinal adhesions [bands], with partial obstruction (principal); J96.20 Acute and chronic respiratory failure, unspecified whether with hypoxia or hypercapnia; E66.9 Obesity, unspecified; E78.00 Pure hypercholesterolemia, unspecified; E78.5 Hyperlipidemia, unspecified; F17.210 Nicotine dependence, cigarettes, uncomplicated; G89.29 Other chronic pain; F10.229 Alcohol dependence with intoxication, unspecified; H54.61 Unqualified visual loss, right eye, normal vision left eye; I10 Essential (primary) hypertension; K21.9 Gastro-esophageal reflux disease without esophagitis; K42.9 Umbilical hernia without obstruction or gangrene; M47.896 Other spondylosis, lumbar region; Z86.73 Personal history of transient ischemic attack (TIA), and cerebral infarction without residual deficits; Z87.11 Personal history of peptic ulcer disease; Z79.82 Long term (current) use of aspirin; Z79.899 Other long term (current) drug therapy; Z71.41 Alcohol abuse counseling and surveillance of alcoholic; Z68.30 Body mass index [BMI] 30.0-30.9, adult
CPT/HCPCS: 36415; 74018; 74177; 80048; 80053; 80307; 81003; 83690; 83735; 84100; 85025; 96374; G0378; J1170; J1644; J2405; J3411; J3475; J3480; J7042; Q9967; C9113; J2270; J2765; J7120

== ENCOUNTER 2019-01-05 04:29 | Inpatient (IN) | payer MEDICARE ==
[~2019-01-05] VITALS: Ht 193 cm; Wt 108.9 kg
[~2019-01-05 04:29] MED LIST changes: +DOCU-131 PO
[2019-01-05 04:59] LABS: BASOPHILS # (AUTO) 0.03 x10^3/uL (0-0.1); BASOPHILS % (AUTO) 1 % (0-1); EOSINOPHILS % (AUTO) 2 % (1-7); LYMPHOCYTES # (AUTO) 1.61 x10^3/uL (1-3.4); LYMPHOCYTES % (AUTO) 25 % (22-44); MD NO; MEAN CORPUSCULAR HEMOGLOBIN 32.2 pg (27.5-34.5); MEAN CORPUSCULAR HGB CONC 33.2 g/dL (33.2-36.2); MEAN CORPUSCULAR VOLUME 96.9 fL (81-97); MEAN PLATELET VOLUME 8.4 fL (7.4-10.4); MONOCYTES # (AUTO) 0.76 x10^3/uL (0.2-0.8); MONOCYTES % (AUTO) 12 % (2-9); NEUTROPHILS # (AUTO) 4.02 x10^3/uL (1.8-6.8); NEUTROPHILS % (AUTO) 62 % (42-75); PLATELET COUNT 241 x10^3/uL (130-400); RED BLOOD COUNT 5.22 x10^6/uL (4.38-5.82); RED CELL DISTRIBUTION WIDTH 14.2 % (9.4-14.8)
[2019-01-05 05:03] LABS: PROTHROMBIN TIME 10.5 Seconds (9.6-11.5)
--- NOTE | 2019-01-05 05:12 | NUR ---
PT BACK FROM CT SCAN AND POSITIONED FOR NEURO EXAM.
[2019-01-05] MEDS ORDERED: OMNIPAQUE 350 MG/ML, 100ML BOTTLE ONE (05:17)
--- NOTE | 2019-01-05 05:17 | NUR ---
TASK RN: NEURO ASSESSMENT COMPLETED VIA TELE MD.
[2019-01-05] MEDS ORDERED: ALTEPLASE 1 MG/ML ONE (05:24)
[2019-01-05] MEDS ORDERED: ALTEPLASE 9 MG in SYRINGE 1 EA IVPush ONE (05:30)
[2019-01-05] MEDS ORDERED: ALTEPLASE 81 MG in VIAL 1 EACH IV ONE (05:30)
--- NOTE | 2019-01-05 05:44 | NUR ---
TASK RN: TPA INITIATED PER ORDER. DOSAGES/PUMP TWO RN CHECK COMPLETED WITH PRANEETH FOLOD. PT ALERT/ORIENTED, NAD NOTED. MILD LUE/LLE WEAKNESS NOTED. CONSENT SIGNED PRIOR TO MEDICATION ADMIN. BP/SPO2/ECG MONITORING IN PLACE. NSR ON MONITOR.
--- NOTE | 2019-01-05 05:59 | NUR ---
TASK RN: TPA INFUSING. PT REMAINS AWAKE/ALERT. NO S/S OF MEDICATION RXN NOTED. RN AT BEDSIDE FOR OBS/ Q 15MIN NEURO CHECKS
--- NOTE | 2019-01-05 06:14 | NUR ---
TASK RN: TPA CONTINUES TO INFUSE. PT W/ FULL ROM OF LUE/LLE. R CAR BLOCKER STRENGTH > L CAR BLOCKER STRENGTH; R PEDAL FLEXION > L PEDAL FLEXION. IMPROVEMENT IN LUE STRENGTH NOTED FROM INITIAL ASSESSMENT.
--- NOTE | 2019-01-05 06:26 | NUR ---
TASK RN: PT REPORTING SUDDEN ONSET "REALLY BAD HEADACHE". ERP MADE AWARE. ORDERS TO STOP TPA RECEIVED. CT ORDERED BY ERP.
--- NOTE | 2019-01-05 06:39 | NUR ---
PT TO CT WITH RN. PT REMAINS AWAKE/ALERT. DENIES NAUSEA/CHANGES IN VISION. VS STABLE. AWAITING CT READ
--- NOTE | 2019-01-05 06:45 | NUR ---
CLEAR SECOND CT, NO EVIDENCE OF HEAD BLEED. TPA RESTARTED PER ERP.
[2019-01-05] MEDS ORDERED: OXYcodone 5 MG/5 ML ORAL.SOL UDC PO PRN (08:00)
[2019-01-05] MEDS ORDERED: ACETAMINOPHEN 325 MG TABLET PO PRN (08:00)
[2019-01-05] MEDS ORDERED: DEXTROSE 50%, 50ML SYRINGE IVPush PRN (08:00)
[2019-01-05] MEDS ORDERED: ONDANSETRON 4 MG TABLET PO PRN (08:00)
[2019-01-05] MEDS ORDERED: ONDANSETRON 2MG/ML, 2ML IVPush PRN (08:00)
[2019-01-05] MEDS ORDERED: BISACODYL 10 MG SUPP PR PRN (08:00)
[2019-01-05] MEDS ORDERED: POLYETHYLENE GLYCOL 17 GM PACKET PO PRN (08:00)
[2019-01-05] MEDS ORDERED: GLUCAGON 1 MG IM PRN (08:00)
[2019-01-05] MEDS ORDERED: LABETALOL 5MG/ML, 20ML IV PRN (08:00)
[2019-01-05] MEDS ORDERED: DEXTROSE 4 GM TAB.CHEW PO PRN (08:00)
[2019-01-05] MEDS ORDERED: ENALAPRILAT 1.25 MG/ML, 2ML IV PRN (08:00)
[2019-01-05] MEDS ORDERED: LACTULOSE 10 GM/15 ML UDC PO SCH (09:00)
[2019-01-05] MEDS ORDERED: OXYcodone IR 5MG TABLET ONE (09:06)
[2019-01-05] MEDS: SODIUM CHLORIDE FLUSH 10ML SYR IVF SCH ×2 (09:09→21:00)
[2019-01-05] MEDS ORDERED: OXYcodone IR 5MG TABLET PO PRN (09:30)
[2019-01-05] MEDS ORDERED: LACTULOSE 10 GM/15 ML UDC PO PRN (14:00)
[2019-01-05] MEDS: ATORVASTATIN 80 MG TABLET PO SCH (22:12)
[2019-01-06 04:15] VITALS: BP 102/47
[2019-01-06 04:39] LABS: CHOL/HDL RATIO 4.1; LDL/HDL RATIO 1.8 (0.5-3.0)
[2019-01-06] MEDS: SODIUM CHLORIDE FLUSH 10ML SYR IVF SCH ×2 (08:17→19:28)
[2019-01-06] MEDS: CLOPIDOGREL 75 MG TABLET PO SCH (11:10)
[2019-01-06] MEDS: ATORVASTATIN 80 MG TABLET PO SCH (19:28)
[2019-01-06 21:43] VITALS: BP 109/71
[2019-01-07 02:00] VITALS: BP 159/83
[2019-01-07 05:55] LABS: BASOPHILS # (AUTO) 0.02 x10^3/uL (0-0.1); BASOPHILS % (AUTO) 0 % (0-1); EOSINOPHILS % (AUTO) 3 % (1-7); LYMPHOCYTES # (AUTO) 1.65 x10^3/uL (1-3.4); LYMPHOCYTES % (AUTO) 27 % (22-44); MD NO; MEAN CORPUSCULAR HEMOGLOBIN 32.1 pg (27.5-34.5); MEAN CORPUSCULAR HGB CONC 33.2 g/dL (33.2-36.2); MEAN CORPUSCULAR VOLUME 96.5 fL (81-97); MEAN PLATELET VOLUME 8.3 fL (7.4-10.4); MONOCYTES # (AUTO) 0.63 x10^3/uL (0.2-0.8); MONOCYTES % (AUTO) 10 % (2-9); NEUTROPHILS # (AUTO) 3.57 x10^3/uL (1.8-6.8); NEUTROPHILS % (AUTO) 59 % (42-75); PLATELET COUNT 222 x10^3/uL (130-400); RED BLOOD COUNT 5.01 x10^6/uL (4.38-5.82); RED CELL DISTRIBUTION WIDTH 13.9 % (9.4-14.8)
[2019-01-07] MEDS ORDERED: ASPIRIN 81 MG TABLET EC PO SCH (06:00)
[2019-01-07] MEDS: ASPIRIN 81 MG TABLET EC PO SCH (06:01)
[2019-01-07 06:05] LABS: ALBUMIN 3.3 g/dL (3.4-5.0); CHLORIDE 109 mmol/L (98-107)
[2019-01-07 06:11] LABS: ALANINE AMINOTRANSFERASE 20 U/L (12-78); ALKALINE PHOSPHATASE 104 U/L (45-117); ANION GAP 9 mmol/L (5-15); BILIRUBIN,TOTAL 0.7 mg/dL (0.2-1.0); CALCIUM 8.9 mg/dL (8.5-10.1); CREATININE 0.88 mg/dL (0.7-1.3); TOTAL PROTEIN 6.5 g/dL (6.4-8.2)
[2019-01-07 07:39] VITALS: BP 111/79
[2019-01-07] MEDS: FOLIC ACID 1 MG TABLET PO SCH (08:20)
[2019-01-07] MEDS: CLOPIDOGREL 75 MG TABLET PO SCH (08:20)
[2019-01-07] MEDS: MULTIVITAMIN 1 TABLET PO SCH (08:20)
[2019-01-07] MEDS: THIAMINE 100MG TABLET PO SCH (08:20)
[2019-01-07] MEDS: SODIUM CHLORIDE FLUSH 10ML SYR IVF SCH ×2 (08:20→20:37)
[2019-01-07 12:07] VITALS: BP 126/72
[2019-01-07 19:19] VITALS: BP 98/64
[2019-01-07] MEDS: ATORVASTATIN 80 MG TABLET PO SCH (20:37)
[2019-01-07 20:43] VITALS: BP 122/70
[2019-01-08 02:31] VITALS: BP 101/63
[2019-01-08] MEDS: ASPIRIN 81 MG TABLET EC PO SCH (05:17)
[2019-01-08 05:46] LABS: BASOPHILS # (AUTO) 0.05 x10^3/uL (0-0.1); BASOPHILS % (AUTO) 1 % (0-1); EOSINOPHILS # (AUTO) 0.16 x10^3/uL (0-0.4); EOSINOPHILS % (AUTO) 2 % (1-7); LYMPHOCYTES # (AUTO) 1.61 x10^3/uL (1-3.4); LYMPHOCYTES % (AUTO) 22 % (22-44); MD NO; MEAN CORPUSCULAR HEMOGLOBIN 31.8 pg (27.5-34.5); MEAN CORPUSCULAR HGB CONC 32.8 g/dL (33.2-36.2); MEAN PLATELET VOLUME 8.2 fL (7.4-10.4); MONOCYTES # (AUTO) 0.76 x10^3/uL (0.2-0.8); MONOCYTES % (AUTO) 10 % (2-9); NEUTROPHILS # (AUTO) 4.85 x10^3/uL (1.8-6.8); NEUTROPHILS % (AUTO) 65 % (42-75); PLATELET COUNT 245 x10^3/uL (130-400); RED BLOOD COUNT 5.23 x10^6/uL (4.38-5.82); RED CELL DISTRIBUTION WIDTH 13.9 % (9.4-14.8)
[2019-01-08 05:55] LABS: ANION GAP 5 mmol/L (5-15); CHLORIDE 108 mmol/L (98-107); CREATININE 0.89 mg/dL (0.7-1.3)
[2019-01-08 07:42] VITALS: BP 118/77
[2019-01-08] MEDS: MULTIVITAMIN 1 TABLET PO SCH (09:29)
[2019-01-08] MEDS: THIAMINE 100MG TABLET PO SCH (09:29)
[2019-01-08] MEDS: CLOPIDOGREL 75 MG TABLET PO SCH (09:29)
[2019-01-08] MEDS: FOLIC ACID 1 MG TABLET PO SCH (09:29)
[2019-01-08] MEDS: SODIUM CHLORIDE FLUSH 10ML SYR IVF SCH (09:30)
[2019-01-08 13:00] VITALS: BP 120/74
[2019-01-08] MEDS ORDERED: THIA100T67 PO (15:42)
[2019-01-08] MEDS ORDERED: MULT1TAB60 PO (15:42)
[2019-01-08] MEDS ORDERED: FOLI-17 PO (15:42)
[2019-01-08] MEDS ORDERED: ATOR-2 PO (15:42)
[2019-01-08] MEDS ORDERED: CLOP75TA PO (15:42)
== END 2019-01-08 16:50 | disposition home health service (06) | DRG 62 ==
LOC: ED 06:00 → SUATTDRO 07:38 → CSU 07:39 → 4WST 01-06 21:16 → DCLOUNGE 01-08 16:50
PROVIDERS: ADMIT Internal Medicine; ATTEND Internal Medicine
DX: I63.9 Cerebral infarction, unspecified (principal); G81.94 Hemiplegia, unspecified affecting left nondominant side; E78.5 Hyperlipidemia, unspecified; F17.210 Nicotine dependence, cigarettes, uncomplicated; H54.61 Unqualified visual loss, right eye, normal vision left eye; R29.704 NIHSS score 4; I10 Essential (primary) hypertension; K44.9 Diaphragmatic hernia without obstruction or gangrene; R29.810 Facial weakness; Z87.11 Personal history of peptic ulcer disease; Z91.19 Patient's noncompliance with other medical treatment and regimen; Z86.73 Personal history of transient ischemic attack (TIA), and cerebral infarction without residual deficits; Z82.49 Family history of ischemic heart disease and other diseases of the circulatory system; Z83.6 Family history of other diseases of the respiratory system
CPT/HCPCS: 36415; 70450; 70496; 70498; 70551; 80047; 80048; 80053; 80061; 80307; 83735; 84100; 85025; 85610; 85730; 87081; 93005; 93306; 93880; 96365; 96375; G0378; J2997; Q9967; 92523-GN